=== PATIENT | male | born 1975 | race Caucasian/White ===

== ENCOUNTER 2022-08-04 15:40 | Emergency (ER) | payer OTHER ==
[2022-08-04 15:57] VITALS: TEMP 98.6; BMI 34.2
[2022-08-04] MEDS ORDERED: KETOROLAC TROMETHAMINE 15 MG/ML VIAL IVPUSH ONE (16:59)
[2022-08-04] MEDS ORDERED: diphenhydrAMINE HCL 25 MG CAPSULE (FP) PO ONE ×2 (16:59→17:21)
[2022-08-04] MEDS ORDERED: SODIUM CHLORIDE 0.9% 500 ML INFUS.BAG IV ONE (16:59)
[2022-08-04] MEDS ORDERED: METOCLOPRAMIDE HCL INJECTION 10 MG/2 ML VIAL IVPUSH ONE (16:59)
[2022-08-04] MEDS ORDERED: METOCLOPRAMIDE HCL INJECTION 10 MG/2 ML VIAL ONE (17:21)
[2022-08-04] MEDS ORDERED: KETOROLAC TROMETHAMINE 15 MG/ML VIAL ONE (17:22)
[2022-08-04 17:29] LABS: BASO % 0.9 % (0-2.0); EOS % 9.9 % (0-4.5); HEMATOCRIT 37.8 % (35.4-49); MCH 26.1 pg (25.7-33.7); MCHC 31.7 g/dl (32.0-35.9); MEAN CELL VOLUME 82.4 fl (80-96); NEUT % 51.2 % (42.8-82.8); PLATELET COUNT 357 10^3/uL (134-434); RBC 4.58 M/mm3 (4.00-5.60); RDW 14.9 % (11.9-15.9); WHITE BLOOD COUNT 7.6 K/mm3 (4.0-10.0)
[2022-08-04 17:46] LABS: POTASSIUM 4.5 mmol/L (3.5-5.1)
[2022-08-04 17:48] LABS: CALCIUM 9.1 mg/dL (8.5-10.1)
[2022-08-04 17:49] LABS: BLOOD UREA NITROGEN 14.5 mg/dL (7-18)
[2022-08-04 17:52] LABS: CREATININE 1.2 mg/dL (0.55-1.3)
[2022-08-04 17:53] LABS: BILIRUBIN,TOTAL 0.3 mg/dL (0.2-1)
[2022-08-04 17:54] LABS: TOT PROT 7.7 g/dl (6.4-8.2)
[2022-08-04 18:37] VITALS: BP 118/77; PULSE 77; RESP 18
== END 2022-08-04 18:49 | disposition home or self-care (01) ==
LOC: JER 15:40
PROC: 3E033NZ Introduction of Analgesics, Hypnotics, Sedatives into Peripheral Vein, Percutaneous Approach (ICD-10-PCS; principal; 2022-08-04)
PROC: 3E033GC Introduction of Other Therapeutic Substance into Peripheral Vein, Percutaneous Approach (ICD-10-PCS; 2022-08-04)
DX: R51.9 Headache, unspecified (principal); G89.29 Other chronic pain; R22.0 Localized swelling, mass and lump, head; T78.40XA Allergy, unspecified, initial encounter; G44.019 Episodic cluster headache, not intractable
CPT/HCPCS: 36415; 70450-TC; 80053; 85025; 99284-25